=== PATIENT | male | born 1960 | race Caucasian/White ===

== ENCOUNTER 2016-12-14 13:42 | Emergency (ER) | payer OTHER ==
[~2016-12-14] VITALS: Ht 170.2 cm; Wt 65.9 kg
[2016-12-14 13:47] VITALS: TEMP 36.8; Ht 170.2 cm; Wt 65.9 kg
--- NOTE | 2016-12-14 14:22 | EMERGENCY ROOM VISIT NOTE ---
History Report prepared by Russ: Ian Palomo Under the Supervision of: Dr. Kan Pantoja M.D. First contact with patient: 14:07 Chief Complaint: PAIN (GENERALIZED) Stated Complaint: DX: W/CANCER DOWN KNEES-FEET/TINGLING, BURNING History of Present Illness The patient is a 56 year old male who presents to the Emergency Room with complaints of worsening bilateral lower extremity pain for over four months. The patient describes a burning sensation to the legs, rated 8/10 in severity. He also has some tingling of the lower extremities. The patient has been falling frequently lately because his legs have been giving out. The patient moved to the area from [place] four months ago. The patient states that he was diagnosed with cancer of both lower extremities while in [place]. He does not know why type of cancer he was diagnosed with. He has not followed up. The patient does not have a primary care physician. The patient broke both of his legs in the past. Source of History: patient Onset: four months Position: leg (bilateral) Symptom Intensity: 8/10 Quality: burning Timing: worsening Associated Symptoms: + numbness (tingling) Review of Systems All systems have been listed, reviewed, and are negative other than those previously mentioned. Please see Additional Medical History Sheet. Past Medical & Surgical Medical Problems: (1) Broken legs (2) Cervical spine fracture (3) Depression (4) Hepatitis C (5) Hiatal hernia (6) HTN (hypertension) Family History Cancer Diabetes mellitus Social History Smoking Status: Current Every Day Smoker Housing Status: lives with friends Current/Historical Medications Scheduled PRN Tramadol (Ultram), 50 MG PO Q4H PRN for Pain Allergies Coded Allergies: Penicillins (Verified Allergy, Intermediate, rash, 12/14/16) Physical Exam Vital Signs Date Time Temp Pulse Resp B/P Pulse Ox O2 Delivery O2 Flow Rate FiO2 12/14/16 15:14 81 20 154/97 98 Room Air 12/14/16 13:47 36.8 104 20 119/88 94 Room Air Physical Exam GENERAL: Patient awake, alert, oriented x 3. Patient follows commands. Patient does not appear toxic. Patient is adequately hydrated and well- nourished. SKIN: No erythema, pallor, cyanosis or rash HEENT: Normal head, pupils equal, reactive to light and accommodation. Increased cerumen bilaterally. Oral cavity and posterior pharynx appear normal. Neck: Without adenopathy, no neck vein distention. Large scar at the base. LUNGS: Clear to auscultation. No wheezes, no rales, no rhonchi. HEART: No murmurs. No gallops. No rubs ABDOMEN: No masses, no rebound, no hepatomegaly or splenomegaly. EXTREMITIES: No signs of trauma. No pedal or pretibial edema. No calf or thigh tenderness. Appears to have good motor sensory and circulatory function to both feet. NEUROLOGIC: Cranial nerves II-XII within normal limits. No gross motor sensory function deficits. Medical Decision & Procedures Laboratory Results 12/14/16 15:05 Red Blood Count 5.01, Mean Corpuscular Volume 89.4, Mean Corpuscular Hemoglobin 31.1, Mean Corpuscular Hemoglobin Concent 34.8, Mean Platelet Volume 12.7, Neutrophils (%) (Auto) 57.4, Lymphocytes (%) (Auto) 31.0, Monocytes (%) (Auto) 7.9, Eosinophils (%) (Auto) 2.8, Basophils (%) (Auto) 0.7, Neutrophils # (Auto) 2.63, Lymphocytes # (Auto) 1.42, Monocytes # (Auto) 0.36, Eosinophils # (Auto) 0.13, Basophils # (Auto) 0.03 12/14/16 15:05 Test 12/14/16 15:05 White Blood Count 4.58 K/uL (4.8-10.8) Red Blood Count 5.01 M/uL (4.7-6.1) Hemoglobin 15.6 g/dL (14.0-18.0) Hematocrit 44.8 % (42-52) Mean Corpuscular Volume 89.4 fL (80-100) Mean Corpuscular Hemoglobin 31.1 pg (25-34) Mean Corpuscular Hemoglobin Concent 34.8 g/dl (32-36) Platelet Count 121 K/uL (130-400) Mean Platelet Volume 12.7 fL (7.4-10.4) Neutrophils (%) (Auto) 57.4 % Lymphocytes (%) (Auto) 31.0 % Monocytes (%) (Auto) 7.9 % Eosinophils (%) (Auto) 2.8 % Basophils (%) (Auto) 0.7 % Neutrophils # (Auto) 2.63 K/uL (1.4-6.5) Lymphocytes # (Auto) 1.42 K/uL (1.2-3.4) Monocytes # (Auto) 0.36 K/uL (0.11-0.59) Eosinophils # (Auto) 0.13 K/uL (0-0.5) Basophils # (Auto) 0.03 K/uL (0-0.2) RDW Standard Deviation 41.5 fL (36.4-46.3) RDW Coefficient of Variation 12.8 % (11.5-14.5) Immature Granulocyte % (Auto) 0.2 % Immature Granulocyte # (Auto) 0.01 K/uL (0.00-0.02) Platelet Estimate DECREASED Large Platelets 1+ Prothrombin Time 11.0 SECONDS (9.0-12.0) Prothromb Time International Ratio 1.0 (0.9-1.1) Activated Partial Thromboplast Time 29.2 SECONDS (21.0-31.0) Partial Thromboplastin Ratio 1.1 Anion Gap 9.0 mmol/L (3-11) Est Creatinine Clear Calc Drug Dose 92.6 ml/min Estimated GFR () 114.5 Estimated GFR (Non- 98.8 BUN/Creatinine Ratio 7.1 (10-20) Calcium Level 9.0 mg/dl (8.5-10.1) Total Bilirubin 0.5 mg/dl (0.2-1) Aspartate Amino Transf (AST/SGOT) 81 U/L (15-37) Alanine Aminotransferase (ALT/SGPT) 95 U/L (12-78) Alkaline Phosphatase 63 U/L (45-117) Total Protein 7.8 gm/dl (6.4-8.2) Albumin 3.5 gm/dl (3.4-5.0) Globulin 4.3 gm/dl (2.5-4.0) Albumin/Globulin Ratio 0.8 (0.9-2) Medications Administered Medications (Trade) Dose Ordered Sig/Topher Route Start Time Stop Time Status Last Admin Dose Admin Tramadol/ Acetaminophen (Ultracet Tab) 1 tab ONE ONCE PO 12/14/16 14:30 12/14/16 14:33 DC 12/14/16 15:17 1 TAB ED Course 1409: Past medical records reviewed. The patient was evaluated in room C2b. A complete history and physical examination was performed. Medical Decision Differential diagnosis includes occult neoplasm, peripheral artery disease, depression. Contact was made with both hospitals the patient mentioned in [facility]. There is no references to cancer. The patient does have a history of alcoholism. Multiple labs were obtained here. They were evaluated. Please see above. The patient was given tramadol. At this point, there is no evidence of cancer. The patient may have a neuropathy. 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 I 've referred him to [facility]. [place] Drug Monitoring Program Search Results: patient reviewed within database Drug Monitoring Findings: no data present Impression Primary Impression: Leg pain, bilateral Scribe Attestation The scribe's documentation has been prepared under my direction and personally reviewed by me in its entirety. I confirm that the note above accurately reflects all work, treatment, procedures, and medical decision making performed by me. Departure Information Dispostion Home / Self-Care Prescriptions Tramadol (Ultram) 50 Mg Tab 50 MG PO Q4H Y for Pain, #15 TAB Prov: Kan Pantoja M.D. 12/14/16 Referrals No Doctor, Assigned (PCP) Patient Instructions My [facility] Additional Instructions 1 Ultram every 4 hours as needed for pain. Follow-up with a family physician as soon as possible.
[2016-12-14] MEDS ORDERED: TRAMADOL/ACETAMINOPHEN 37.5/325MG TAB PO ONE (14:30)
[2016-12-14 15:36] LABS: PARTIAL THROMBOPLASTIN RATIO 1.1
--- NOTE | 2016-12-14 15:38 | DIAGNOSTIC IMAGING REPORT ---
CHEST 2 VIEWS ROUTINE CLINICAL HISTORY: generalized pain dyspnea COMPARISON STUDY: No previous studies for comparison. FINDINGS: The bones soft tissues and hemidiaphragms are normal. The cardiomediastinal silhouette is normal. The lungs are clear. The pulmonary vasculature is normal. IMPRESSION: Negative chest. Electronically signed by: Yasmany Goff M.D. 12/14/2016 3:37 PM Dictated Date/Time: 12/14/2016 3:37 PM
[2016-12-14 15:49] LABS: BUN/CREATININE RATIO 7.1 (10-20); CREATININE 0.85 mg/dl (0.60-1.40); POTASSIUM 3.7 mmol/L (3.5-5.1)
[2016-12-14 15:52] LABS: ALB/GLOB RATIO 0.8 (0.9-2)
[2016-12-14 15:55] LABS: BASO % 0.7 %; BASO ABS # 0.03 K/uL (0-0.2); COMPLETE YES; EOS % 2.8 %; HEMATOCRIT 44.8 % (42-52); IG% 0.2 %; LARGE PLATELETS 1+; LYMPH ABS # 1.42 K/uL (1.2-3.4); MEAN CELL VOLUME 89.4 fL (80-100); MEAN CORPUSCULAR HEMOGLOBIN 31.1 pg (25-34); MEAN CORPUSCULAR HGB CONC 34.8 g/dl (32-36); MEAN PLATELET VOLUME 12.7 fL (7.4-10.4); MONO % 7.9 %; NEUT % 57.4 %; PLATELET COUNT 121 K/uL (130-400); PLT ESTIMATE DECREASED; RED BLOOD COUNT 5.01 M/uL (4.7-6.1); WHITE BLOOD COUNT 4.58 K/uL (4.8-10.8)
[2016-12-14] MEDS ORDERED: TRAM-10 PO (16:20)
[2016-12-14 17:12] VITALS: BP 150/106; PULSE 89; O2SAT 97
== END 2016-12-14 17:12 | disposition home or self-care (01) ==
LOC: C.EDB 13:47 → C.EDC 17:12
DX: M79.604 Pain in right leg (principal); M79.605 Pain in left leg; F17.200 Nicotine dependence, unspecified, uncomplicated; I10 Essential (primary) hypertension

== ENCOUNTER 2017-01-07 19:37 | Emergency (ER) | payer OTHER ==
[~2017-01-07] VITALS: Ht 167.6 cm; Wt 56.0 kg
[~2017-01-07 19:37] MED LIST: TRAM-10 PO
[2017-01-07 19:41] VITALS: TEMP 37.1; Ht 167.6 cm; Wt 56.0 kg
[2017-01-07] MEDS ORDERED: PROMETHAZINE HCL INJ 25 MG/ML 1 ML VIAL IM STA (20:12)
[2017-01-07] MEDS ORDERED: SULFAMETHOXAZOLE/TRIMETHOPRIM DS 800/160MG TAB PO STA (20:12)
[2017-01-07] MEDS ORDERED: KETOROLAC TROMETHAMINE 60 MG/2 ML VIAL IM STA (20:12)
[2017-01-07] MEDS ORDERED: LIDOCAINE/EPINEPHRINE 1% 20 ML VIAL INFIL STA (20:12)
[2017-01-07] MEDS ORDERED: HYDROmorphone INJ 2 MG/ML SYR/VIAL IM STA (20:12)
[2017-01-07] MEDS ORDERED: CEPHALEXIN MONOHYDRATE 250 MG CAP PO STA (20:12)
--- NOTE | 2017-01-07 20:27 | EMERGENCY ROOM VISIT NOTE ---
History Report prepared by Russ: Sandra Land Under the Supervision of: Dr. Everton Dooley M.D. First contact with patient: 20:06 Chief Complaint: RECTAL PAIN Stated Complaint: CYST LEFT BUTT CHEEK History of Present Illness The patient is a 56 year old male who presents to the Emergency Room with complaints of worsening pain of the left buttocks for the past week. The patient states that about a week ago he noticed a cyst on his left buttocks. He has been putting "bread and milk" on the area, but states that his pain is worsening. He rates his current pain as a 10/10 in severity. The patient states that anything touching the area exacerbates his pain. Source of History: patient Onset: 1 week ago Position: buttock (left) Symptom Intensity: 10/10 Timing: worsening Modifying Factors (Worsening): other (anything touching the area) Review of Systems See HPI for pertinent positives & negatives. A total of 10 systems reviewed and were otherwise negative. Past Medical & Surgical Medical Problems: (1) Broken legs (2) Cervical spine fracture (3) Depression (4) Hepatitis C (5) Hiatal hernia (6) HTN (hypertension) Family History Cancer Diabetes mellitus Social History Smoking Status: Current Every Day Smoker Alcohol Use: heavy Housing Status: lives with friends Current/Historical Medications Scheduled Cephalexin Monohydrate (Keflex), 500 MG PO QID Sulfa/Trimethoprim (Bactrim Ds 800MG/160MG), 1 TAB PO BID Scheduled PRN Oxycodone/Acetaminophen 5MG/325MG (Percocet 5MG/325MG), 1-2 TABLETS PO Q6 PRN for Pain Allergies Coded Allergies: Penicillins (Verified Allergy, Intermediate, rash, 01/07/17) Physical Exam Vital Signs Date Time Temp Pulse Resp B/P Pulse Ox O2 Delivery O2 Flow Rate FiO2 01/07/17 22:14 108 16 101/64 96 01/07/17 19:41 37.1 90 16 98/65 94 Room Air Physical Exam GENERAL: Patient is a healthy-appearing well-nourished 56 year old male. HEAD: Normocephalic atraumatic EYES: Ocular movements intact pupils equal and react to light OROPHARYNX mucous membranes are moist no exudates present no erythema or edema present NECK: Supple no nuchal rigidity CHEST: Good equal expansion LUNGS: Clear and equal to auscultation CARDIAC: Normal S1 and S2 ABDOMEN: Soft nontender no guarding BACK: No CVA tenderness EXTREMITIES: No pain upon palpation normal muscle strength in all groups no clubbing cyanosis or edema. There is a 2x2 inch area of redness with puss oozing from it on the left gluteal cheek, exquisitely tender. NEURO: Patient is following commands is answering questions appropriately. Alert and oriented x3 Cranial Nerves 2-12 grossly intact Medical Decision & Procedures Medications Administered Medications (Trade) Dose Ordered Sig/Topher Route Start Time Stop Time Status Last Admin Dose Admin Hydromorphone HCl (Dilaudid Inj) 2 mg NOW STAT IM 01/07/17 20:12 01/07/17 20:16 DC 01/07/17 20:30 2 MG Ketorolac Tromethamine (Toradol Inj) 60 mg NOW STAT IM 01/07/17 20:12 01/07/17 20:16 DC 01/07/17 20:29 60 MG Promethazine HCl (Phenergan Inj) 25 mg NOW STAT IM 01/07/17 20:12 01/07/17 20:16 DC 01/07/17 20:29 25 MG Cephalexin Monohydrate (Keflex Cap) 500 mg NOW STAT PO 01/07/17 20:12 01/07/17 20:16 DC 01/07/17 20:30 500 MG Trimethoprim/ Sulfamethoxazole (Septra Ds 800/ 160MG Tab) 1 tab NOW STAT PO 01/07/17 20:12 01/07/17 20:16 DC 01/07/17 20:30 1 TAB Procedure Incision & Drainage Indication: Abscess. Location: Left gluteal cheek. Verbal consent was obtained after the risks and benefits were explained, including but not limited to bleeding, scarring, infection, pain, and bone/joint /nerve damage. At this time, the risks of the procedure are less than the risks of NOT performing the procedure. A time out was taken and the correct patient and site identified. The skin was prepped with betadine and a sterile field set. The wound was anesthetized with 10 ml of 1% lidocaine without epinephrine. The abscess cavity was entered with a number 11 blade and viscus purulent pus material expressed. Copious irrigation was performed using 500 CCs. The wound was explored for foreign bodies and none found. Debridement was not performed. Packing placed and a sterile dressing applied. Detailed wound care instructions and signs and symptoms of worsening infection reviewed with the patient. No complications and the patient tolerated the procedure well. ED Course 2005: Past medical records reviewed. The patient was evaluated in room A9B. A complete history and physical examination was performed. 2011: Septra Ds 800/160 mg 1 tab PO, Keflex 500 mg PO, Lidocaine/Epinephrine 10 ml, Promethazine HCl 25 mg IM, Toradol 60 mg IM, Dilaudid 2 mg IM 2124: At this time I performed an I&D. Please see the procedure note for further details. After the procedure I discussed the results and treatment plan with the patient. I answered all pertaining questions that he had. He expressed understanding and verbalized agreement. The patient will be discharged home and was encouraged to return in 48 hours for wound recheck. Medical Decision Differential diagnosis: Etiologies such as cellulitis, abscess, MRSA infection, DVT, necrotizing fasciitis, dermatitis, drug eruption, as well as others were entertained. This is a 56-year-old male who presents emergency department complaining of an abscess to his right buttock. Based on the patient's complaint he was given 2 of Dilaudid along with Toradol as above. The abscess was drained as above and the patient was started on Keflex as well as Bactrim. The patient was sent for a wound culture. He is going to return if 48 hours for recheck. Patient was in agreement with the treatment plan. Impression Primary Impression: Abscess Scribe Attestation The scribe's documentation has been prepared under my direction and personally reviewed by me in its entirety. I confirm that the note above accurately reflects all work, treatment, procedures, and medical decision making performed by me. Departure Information Dispostion Home / Self-Care Prescriptions Oxycodone/Acetaminophen 5MG/325MG (PERCOCET 5MG/325MG) Tab 1-2 TABLETS PO Q6 Y for Pain, #14 TAB PAIN Prov: Everton Dooley MD 01/07/17 Sulfa/Trimethoprim (Bactrim Ds 800MG/160MG) Tab 1 TAB PO BID for 10 Days, #20 TAB Prov: Everton Dooley MD 01/07/17 Cephalexin Monohydrate (KEFLEX) 500 Mg Cap 500 MG PO QID for 10 Days, #40 CAP Prov: Everton Dooley MD 01/07/17 Referrals No Doctor, Assigned (PCP) Forms HOME CARE DOCUMENTATION FORM, IMPORTANT VISIT INFORMATION, WORK / SCHOOL INSTRUCTIONS Patient Instructions ED Abscess Gabriel, My [facility] Additional Instructions Return in 48 hours for wound recheck You received narcotic or benzodiazepene medication while in the emergency room today. Do not drive, operate heavy machinery, or drink alcohol under the influence of this medication. Take 600 mg Ibuprofen every 6 hours Take Percocet for breakthrough pain Culture results are usually available in approx 48 hours You have been examined and treated today on an emergency basis only. This is not a substitute for, or an effort to provide, complete comprehensive medical care. It is impossible to recognize and treat all injuries or illnesses in a single emergency department visit. It is therefore important that you follow up closely with your PCP. Call as soon as possible for an appointment. Thank you for your time and consideration. I look forward to speaking with you again soon. Please don't hesitate to call us if you have any questions.
[2017-01-07] MEDS ORDERED: SULF800T23 PO (21:40)
[2017-01-07] MEDS ORDERED: OXYC-57 PO (21:40)
[2017-01-07] MEDS ORDERED: CEPH500C2 PO (21:40)
[2017-01-07 22:14] VITALS: BP 101/64; PULSE 108; O2SAT 96
== END 2017-01-07 22:16 | disposition home or self-care (01) ==
LOC: C.EDB 19:38 → C.EDA 22:16
DX: L02.31 Cutaneous abscess of buttock (principal); F32.9 Major depressive disorder, single episode, unspecified; I10 Essential (primary) hypertension; F17.200 Nicotine dependence, unspecified, uncomplicated; B19.20 Unspecified viral hepatitis C without hepatic coma

== ENCOUNTER 2017-01-24 17:46 | Emergency (ER) | payer OTHER ==
[~2017-01-24] VITALS: Ht 167.6 cm; Wt 62.7 kg
[~2017-01-24 17:46] MED LIST changes: +OXYC-57 PO; -TRAM-10 PO
[2017-01-24 17:50] VITALS: TEMP 36.5; Ht 167.6 cm; Wt 62.7 kg
[2017-01-24] MEDS ORDERED: SULF800T23 PO (18:08)
[2017-01-24] MEDS ORDERED: CEPH500C PO (18:08)
[2017-01-24] MEDS ORDERED: XYLOCAINE 1%/SOD BICARB 20 ML VIAL INFIL ONE (18:15)
[2017-01-24] MEDS ORDERED: CEPHALEXIN 500MG HOME PACK 1 EA BTL PO ONE (18:56)
[2017-01-24] MEDS ORDERED: SEPTRA DS HOME PACK 1 EA VIAL PO ONE (18:57)
[2017-01-24 19:05] VITALS: BP 140/75; PULSE 76; O2SAT 96
--- NOTE | 2017-01-24 21:43 | EMERGENCY ROOM VISIT NOTE ---
History First contact with patient: 17:58 Chief Complaint: WOUND INFECTION Stated Complaint: CYST ON BUTTOCKS Nursing Triage Summary: Pt c/o cyst, on his bottom. A week or two ago he had one on left, now one on right. History of Present Illness The patient is a 56 year old male who presents to the Emergency Room with complaints of an infection on his right buttock. The patient reports that he noticed swelling and pain 2 days ago. The patient reports that he recently had a left buttock abscess that was drained. When asked if he completed all of his antibiotics, he reports that his prescriptions were not sent to the pharmacy that he went to, therefore did not call the emergency department or undergo any antibiotic treatment. He reports that the infection resolved on its own. The patient denies any rectal pain or pain with bowel movements. He rates his discomfort a 10 out of 10. Denies any fevers or chills. Review of Systems 10 system review was performed and was negative except for pertinent positives and negatives as indicated in history of present illness Past Medical/Surgical History Medical Problems: (1) Broken legs (2) Cervical spine fracture (3) Depression (4) Hepatitis C (5) Hiatal hernia (6) HTN (hypertension) Family History Cancer Diabetes mellitus Social History Smoking Status: Current Every Day Smoker Alcohol Use: heavy Marital Status: single Housing Status: lives with friends Occupation Status: unemployed Current/Historical Medications Scheduled Cephalexin Monohydrate (Keflex), 500 MG PO QID Sulfa/Trimethoprim (Bactrim Ds 800MG/160MG), 1 TAB PO BID Allergies Coded Allergies: Penicillins (Verified Allergy, Intermediate, rash, 01/24/17) Physical Exam Vital Signs Date Time Temp Pulse Resp B/P Pulse Ox O2 Delivery O2 Flow Rate FiO2 01/24/17 19:05 76 18 140/75 96 01/24/17 17:50 36.5 85 17 126/79 98 Pain Rating (0-10): 0 Physical Exam CONSTITUTIONAL: Healthy and well nourished. Alert and oriented X 3 with positive affect. Patient does not appear in any acute distress. HEENT: Normocephalic, atraumatic. Pupils equal, round and reactive. NECK: Full active range of motion without discomfort. GASTROINTESTINAL: Bowel sounds present in all quadrants. Admin soft and nontender to palpation. MUSCULOSKELETAL: Full range of motion of all joints without discomfort. INTEGUMENTARY: Examination shows an area of erythema and induration of the right medial gluteus. There is no erythema extending to the anus, and no discomfort with digital rectal exam. The area of induration is approximately golf ball sized. No drainage or pointing. There is mild fluctuance centrally. NEUROLOGIC: No focal neurologic deficits noted. Medical Decision & Procedures Medications Administered Medications (Trade) Dose Ordered Sig/Topher Route Start Time Stop Time Status Last Admin Dose Admin Cephalexin Monohydrate (Keflex 500MG Home Pack) 1 homepack STK-MED ONCE PO 01/24/17 18:56 01/24/17 19:00 DC 01/24/17 19:03 1 HOMEPACK Trimethoprim/ Sulfamethoxazole (Sulfameth/ Trimeth Ds 800/ 160MG Home Pack) 1 homepack STK-MED ONCE PO 01/24/17 18:57 01/24/17 19:00 DC 01/24/17 19:02 1 HOMEPACK Procedure I&D procedure was performed under local anesthesia after receiving verbal consent from the patient. The area was painted with iodine and allowed to dry. Sterile field was created. Using buffered 1% lidocaine without epinephrine, good local anesthesia was administered. Sterile field was created. Using a # 11 scalpel, a 1 cm incision was made. The patient had approximately 4-5 mL of purulent drainage. Cultures were collected. Underlying loculations were further opened with a needle drivers. The wound was then irrigated with approximately 100 mL of normal saline. 0.25 inch packing was then loosely placed in all reachable margins of the wound, then a bacitracin and bulky dressing was applied. The patient tolerated the procedure well with minimal blood loss. ED Course Patient history and physical exam were performed. Nurse's notes were reviewed. Vital signs were reviewed and normal. I did review prior medical records, showing multiple visits in the past for drainable abscesses. Cultures were reviewed which showed pansensitive bacteria. I&D procedure was successfully performed, and packing was placed. The patient was encouraged to return in 48 hours for wound recheck, sooner with any progressively worsening redness, swelling, pain or developing fever. The patient requested print prescriptions, and was provided Keflex and Bactrim DS prescription and's. He refused any perception analgesics. The patient was happy with plan of care, voiced understanding of all discharge instructions, and denied any significant discomfort at the conclusion of my procedure. Medical Decision Impression Primary Impression: Abscess of right buttock Departure Information Dispostion Home / Self-Care Condition GOOD Prescriptions Sulfa/Trimethoprim (Bactrim Ds 800MG/160MG) Tab 1 TAB PO BID, #14 TAB Prov: Neo Landeros PA 01/24/17 Cephalexin Monohydrate (Keflex) 500 Mg Cap 500 MG PO QID for 7 Days, #28 CAP Prov: Neo Landeros PA 01/24/17 Forms HOME CARE DOCUMENTATION FORM, IMPORTANT VISIT INFORMATION Patient Instructions My [facility] Additional Instructions Complete all Keflex and Bactrim DS antibiotics as prescribed. Packing will need to be removed in 48 hours. Follow-up with your family doctor or return to the emergency department for this procedure and recheck. Ibuprofen 800 mg and/or Tylenol 1000 mg every 8 hours. You may also alternate these medications for more effective pain relief: Ibuprofen --4 HRS--> Tylenol --4 HRS--> ibuprofen --4 HRS--> Tylenol ....
== END 2017-01-24 19:08 | disposition home or self-care (01) ==
LOC: C.EDB 17:48 → C.EDD 19:08
DX: L02.31 Cutaneous abscess of buttock (principal); F32.9 Major depressive disorder, single episode, unspecified; B19.20 Unspecified viral hepatitis C without hepatic coma; I10 Essential (primary) hypertension; Z83.3 Family history of diabetes mellitus; F17.210 Nicotine dependence, cigarettes, uncomplicated